=== PATIENT | female | born 1945 | race Caucasian/White ===

== ENCOUNTER 2020-02-27 16:37 | Inpatient (IN) | payer OTHER ==
[~2020-02-27] VITALS: Ht 154.9 cm; Wt 61.7 kg
[2020-02-27 16:49] VITALS: BP 142/83
[2020-02-27] MEDS ORDERED: PROAIR HFA8.5 GM INH (16:52)
[2020-02-27] MEDS ORDERED: NORVASC5 MG PO (16:52)
[2020-02-27] MEDS ORDERED: ACID CONTROLLER20 MG PO (16:52)
[2020-02-27] MEDS ORDERED: LIPITOR80 MG PO (16:52)
[2020-02-27] MEDS ORDERED: HYDROCHLOROTHIA25 M2 PO (16:53)
[2020-02-27] MEDS ORDERED: TRIAMTERENE/HCT1 CA1 PO (16:53)
[2020-02-27 17:16] LABS: ABSOLUTE BASOPHILS 0.1 thou/uL (0.0-0.2); ABSOLUTE EOSINOPHILS 0.1 thou/uL (0.0-0.7); ABSOLUTE LYMPHOCYTES 2.4 thou/uL (0.8-5.3); ABSOLUTE MONOCYTES 0.6 thou/uL (0.0-1.2); BASOPHILS 0.8 %; EOSINOPHILS 0.7 %; HEMATOCRIT 39.8 % (37.0-47.0); HEMOGLOBIN 13.5 gm/dL (12.0-15.0); LYMPHOCYTES 26.1 %; MCH 31.1 pg (26.0-34.0); MCV 91.6 fL (80.0-100.0); MPV 7.7 fl. (7.2-11.1); NUCLEATED RBCS 0 /100WBC; PLATELET COUNT* 389 thou/uL (150-400); POLYS 65.4 %; RBC 4.34 mil/uL (4.20-5.00); RDW-CV 13.2 % (10.5-14.5); WBC 9.1 thou/uL (4.0-11.0)
[2020-02-27 17:27] LABS: CREATININE 1.5 mg/dL (0.6-1.3); POTASSIUM 3.3 mmol/L (3.5-5.1)
[2020-02-27 17:29] LABS: CALCIUM 13.4 mg/dL (8.5-10.1)
[2020-02-27 17:31] LABS: ALBUMIN 4.4 g/dL (3.4-5.0); TOTAL BILIRUBIN 0.7 mg/dL (<0.1-1.0); TOTAL PROTEIN 8.3 g/dL (6.4-8.2)
[2020-02-27 19:04] LABS: CREATININE 1.4 mg/dL (0.6-1.3); PHOSPHORUS* 3.5 mg/dL (2.5-4.9)
[2020-02-27 19:05] LABS: CALCIUM 12.8 mg/dL (8.5-10.1)
[2020-02-27 22:19] VITALS: BP 134/74
[2020-02-28] VITALS (7 sets, daily range): BP systolic 125–151; BP diastolic 48–108
[2020-02-28] MEDS ORDERED: LEVO-T50 MCG PO (00:05)
[2020-02-28] MEDS ORDERED: LEVO-T75 MCG PO (00:05)
[2020-02-28] MEDS ORDERED: CALCIUM 600 +1 EA12 PO (00:08)
[2020-02-28 08:32] LABS: CREATININE 1.1 mg/dL (0.6-1.3)
[2020-02-28 08:34] LABS: CALCIUM 10.5 mg/dL (8.5-10.1)
[2020-02-28 08:35] LABS: MAGNESIUM 1.3 mg/dL (1.8-2.4); PHOSPHORUS* 2.5 mg/dL (2.5-4.9)
[2020-02-28 08:36] LABS: POTASSIUM 2.9 mmol/L (3.5-5.1)
--- NOTE | 2020-02-28 18:46 | NUR ---
RECEIVED REPORT FROM ER AND PATIENT ARRIVED TO TELE FLOOR AT APPROXIMATELY 1325. ADMISSION PREVIOUSLY COMPLETED BY GENESIS RN. REASSESSMENT AND VS COMPLETED CHARTED. 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 MEDS PER EMAR. ELECTROLYTE REPLACEMENT IN PROGRESS. SON AT BEDSIDE DURING VISITING HOURS. PATIENT WITH NO COMPLAINTS THIS SHIFT. DENIES PAIN. FALL PRECAUTIONS IN PLACE AND CALL LIGHT WITHIN REACH. PATIENT ORIENTED TO ROOM, BED, AND CALL LIGHT.
[2020-02-29 04:00] VITALS: BP 122/62
--- NOTE | 2020-02-29 05:33 | NUR ---
ASSUMED CARE OF PT AFTER REPORT AT 1930. PT A&OX4. VSS. PHYSICAL ASSESSMENT COMPLETED AND CHARTED. PT ON RA. PT TRACING SR ON TELE. PT UPADLIB TO RESTROOM. PT UPADLIB TO RESTROOM. MAGNESIUM 1.2-ELECTROLYTE PROTOCOL IN PLACE. PT DENIES ANY PAIN. CALL LIGHT WITHIN REACH.
--- NOTE | 2020-02-29 05:45 | NUR ---
ASSUMED CARE OF PT AFTER REPORT AT 1930. PT A&OX4. VSS. PHYSICAL ASSESSMENT COMPLETED AND CHARTED. PT ON RA. PT TRACING SR ON TELE. PT UPADLIB TO RESTROOM. PT UPADLIB TO RESTROOM. MAGNESIUM 1.3-ELECTROLYTE PROTOCOL IN PLACE. PT DENIES ANY PAIN. CALL LIGHT WITHIN REACH.
[2020-02-29 08:00] VITALS: BP 141/63
[2020-02-29 09:32] LABS: ALBUMIN 3.4 g/dL (3.4-5.0); CALCIUM 9.6 mg/dL (8.5-10.1); CREATININE 1.1 mg/dL (0.6-1.3); POTASSIUM 3.7 mmol/L (3.5-5.1); TOTAL BILIRUBIN 0.5 mg/dL (<0.1-1.0)
[2020-02-29 11:05] VITALS: BP 141/63
--- NOTE | 2020-02-29 11:40 | NUR ---
RECEIED REPORT. ASSUMED CARE OF PT AROUND 0730. AM ASSESSMENT AND VITALS COMPLETED CHARTED. MEDS PER EMAR. TRAINING TECHNICIAN IN PLACE CHARTED. LABS NORMALIZING. DISCAHRGE ORDERS RECEIVED. DISCHARGE COMPLETED DOCUMENTED. PT AWARE OF STOPPED MEDICATIONS AND TO FOLLOW UP WITH PCP IN ONE WEEK FOR LAB WORK. IV AND TRAINING TECHNICIAN REMOVED. ALL BELONGINGS GATHERED AND SENT OUT WITH PT. PT LEFT UNIT IN WC WITH NURSING STAFF. PT LEFT HOSPITAL IN HER OWN CAR, DRIVING HERSLEF.
--- NOTE | 2020-03-01 14:53 | EKG ---
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 03/01/20 1453 1656 1656 Toney Painter MD, [facility] /EPI
--- NOTE | 2020-03-03 09:47 | CON ---
[address] [address] CONSULTATION Name: DUY HAHN Room: [address] IN M.R.#: [id number] Admission: 02/27/20 Attend Phys: Mesfin Machado Discharge: 02/29/20 Date of : 43 Report #: [id number] THIS REPORT FOR: cc: Physician not on staff Physician not on staff ~ Barry Ruffin MD DATE OF SERVICE: 02/28/2020 REQUESTING PHYSICIAN: Yoan Richardson DO REASON FOR CONSULTATION: Hypercalcemia. HISTORY OF PRESENT ILLNESS: The patient is a very pleasant 74-year-old female who was advised by her primary care physician to come to the hospital because her calcium was 13. PAST MEDICAL HISTORY: Positive for hypertension. She is on amlodipine at home. SOCIAL HISTORY: No tobacco or alcohol abuse. FAMILY HISTORY: Noncontributory. REVIEW OF SYSTEMS: All systems reviewed and negative. PHYSICAL EXAMINATION: GENERAL: Awake, alert, oriented, no acute distress. VITAL SIGNS: Blood pressure 150/100, heart rate 95, afebrile. HEENT: Pupils are round. NECK: Supple. LUNGS: Clear. CARDIOVASCULAR: Regular rate. ABDOMEN: Soft. LOWER EXTREMITIES: No edema. LABORATORY DATA: Her creatinine was 1.5 on admission and 1.1 now. Her calcium was 13.4 down to 10.5 now. ASSESSMENT: 1. Hypercalcemia due to calcium supplements and volume depletion. Calcium is much better, almost normal now. 2. Acute kidney injury likely due to volume depletion and hypercalcemia. Her creatinine down to 1.1. 3. Mild hypokalemia. [address] [place] [place] [address] CONSULTATION Name: DUY HAHN Room: [address] IN M.R.#: [id number] Admission: 02/27/20 Attend Phys: Mesfin Machado Discharge: 02/29/20 Date of : 43 Report #: [id number] PLAN: 1. Stop calcium supplements and do not use them in the future. 2. No dairy products. 3. Drink more water. 4. Replace potassium. She is doing much better from my standpoint, I will sign off. <ELECTRONICALLY SIGNED> By: Barry Ruffin MD 03/03/20 0947 0931 1239Alextc Ruffin MD /PMT
== END 2020-02-29 11:40 | disposition home or self-care (01) | DRG 640 ==
LOC: M.ERS 16:37 → M.TBA-ER 18:19 → M.2W 18:19
PROVIDERS: Family Medicine; Internal Medicine; Physician Assistant; ADMIT Internal Medicine; ATTEND Internal Medicine
DX: E83.52 Hypercalcemia (principal); N17.0 Acute kidney failure with tubular necrosis; Z20.822 Contact with and (suspected) exposure to COVID-19; I10 Essential (primary) hypertension; E03.9 Hypothyroidism, unspecified; E86.9 Volume depletion, unspecified; J45.909 Unspecified asthma, uncomplicated; R29.2 Abnormal reflex; E87.6 Hypokalemia; Z82.49 Family history of ischemic heart disease and other diseases of the circulatory system; Z79.899 Other long term (current) drug therapy